=== PATIENT | male | born 1960 | race Two or more races ===

== ENCOUNTER 2016-12-30 16:40 | Emergency (ER) | payer MEDICAID, OTHER ==
[~2016-12-30] VITALS: Ht 167.6 cm; Wt 79.0 kg
[2016-12-30] MEDS ORDERED: MECLIZINE CHEWABLE 25 MG TAB PO ONE ×2 (17:30→18:30)
[2016-12-30] MEDS ORDERED: SODIUM CHLORIDE 0.9% 1,000ML IVBOLUS ONE (17:30)
[2016-12-30] MEDS ORDERED: ONDANSETRON 2MG/ML, 2ML IVPush ONE (17:30)
[2016-12-30] MEDS ORDERED: SODIUM CHLORIDE FLUSH 10ML SYR IVF ONE (17:30)
[2016-12-30] MEDS ORDERED: ONDANSETRON 2MG/ML, 2ML ONE (17:45)
[2016-12-30] MEDS ORDERED: MECLIZINE CHEWABLE 25 MG TAB ONE ×2 (17:45→18:12)
[2016-12-30 18:30] LABS: BLOOD UREA NITROGEN 13 mg/dL (7-18)
[2016-12-30] MEDS ORDERED: DIAZEPAM 5 MG TABLET PO ONE (20:00)
[2016-12-30] MEDS ORDERED: DIAZEPAM 5 MG TABLET ONE (20:20)
[2016-12-30 20:31] VITALS: BP 108/64
== END 2016-12-30 21:00 | disposition home or self-care (01) ==
LOC: ED 18:14
DX: R42 Dizziness and giddiness (principal)
CPT/HCPCS: 36415; 70450; 80048; 82040; 85025; 93005; 96361; 96374; 99285; J2405; J7030

== ENCOUNTER 2018-04-12 14:35 | Emergency (ER) | payer OTHER ==
[~2018-04-12] VITALS: Ht 167.6 cm; Wt 75.3 kg
[2018-04-12 15:11] LABS: BASOPHILS # (AUTO) 0.07 x10^3/uL (0-0.1); BASOPHILS % (AUTO) 1 % (0-1); EOSINOPHILS # (AUTO) 0.16 x10^3/uL (0-0.4); EOSINOPHILS % (AUTO) 2 % (1-7); LYMPHOCYTES # (AUTO) 2.18 x10^3/uL (1-3.4); LYMPHOCYTES % (AUTO) 29 % (22-44); MD NO; MEAN CORPUSCULAR HEMOGLOBIN 33.5 pg (27.5-34.5); MEAN CORPUSCULAR VOLUME 95.7 fL (81-97); MEAN PLATELET VOLUME 7.2 fL (7.4-10.4); MONOCYTES # (AUTO) 0.55 x10^3/uL (0.2-0.8); MONOCYTES % (AUTO) 7 % (2-9); NEUTROPHILS # (AUTO) 4.52 x10^3/uL (1.8-6.8); NEUTROPHILS % (AUTO) 60 % (42-75); PLATELET COUNT 386 x10^3/uL (130-400); RED BLOOD COUNT 4.62 x10^6/uL (4.38-5.82); RED CELL DISTRIBUTION WIDTH 12.9 % (9.4-14.8)
[2018-04-12 15:20] LABS: ALANINE AMINOTRANSFERASE 37 U/L (12-78); ALBUMIN 3.9 g/dL (3.4-5.0); ANION GAP 6 mmol/L (5-15); CALCIUM 8.4 mg/dL (8.5-10.1); CHLORIDE 108 mmol/L (98-107); CREATININE 0.73 mg/dL (0.7-1.3)
[2018-04-12 15:22] LABS: ALKALINE PHOSPHATASE 86 U/L (45-117); BILIRUBIN,TOTAL 0.3 mg/dL (0.2-1.0); TOTAL PROTEIN 7.8 g/dL (6.4-8.2)
[2018-04-12 15:40] VITALS: BP 114/75
[2018-04-12 15:54] LABS: MICROSCOPIC NOT IND
[2018-04-12] MEDS ORDERED: MAALOX/HYOSCYAMINE/LIDOCAINE 45 ML BTL PO ONE (16:00)
[2018-04-12] MEDS ORDERED: FAMOTIDINE 20 MG TABLET PO ONE (16:00)
[2018-04-12] MEDS ORDERED: ONDANSETRON ODT 4 MG PO ONE (16:00)
[2018-04-12 16:03] LABS: CULTURE INDICATED? NO
[2018-04-12] MEDS ORDERED: FAMOTIDINE 20 MG TABLET ONE (16:06)
[2018-04-12] MEDS ORDERED: MAALOX/HYOSCYAMINE/LIDOCAINE 45 ML BTL ONE (16:06)
[2018-04-12] MEDS ORDERED: ONDANSETRON ODT 4 MG ONE (16:06)
== END 2018-04-12 16:48 | disposition home or self-care (01) ==
LOC: ED 16:40
DX: K27.3 Acute peptic ulcer, site unspecified, without hemorrhage or perforation (principal); B96.81 Helicobacter pylori [H. pylori] as the cause of diseases classified elsewhere
CPT/HCPCS: 36415; 76700; 80053; 81003; 83690; 85025; 86677; 93005; 99285; Q0162